=== PATIENT | female | born 1980 | race Two or more races ===

== ENCOUNTER 2019-03-02 09:23 | Observation (INO) | payer SELFPAY ==
[2019-03-02 10:10] LABS: BILIRUBIN,URINE NEGATIVE (NEG); CLARITY,URINE CLEAR; COLOR,URINE YELLOW; NITRITE,URINE NEGATIVE (NEG); PH,URINE 6.5; PROTEIN,URINE NEGATIVE (NEG-TRACE); UROBILINOGEN,URINE 0.2 mg/dL (0.2 mg/dL)
[2019-03-02 10:12] LABS: BARBITURATES NEG (NEG); BENZODIAZEPINES NEG (NEG); CANNABINOIDS NEG (NEG); COCAINE NEG (NEG); METHADONE NEG (NEG); OPIATES NEG (NEG); PHENCYCLIDINE NEG (NEG)
[2019-03-02 10:17] LABS: AMPHETAMINE/METHAMPHETAMINE NEG (NEG)
[2019-03-02 10:51] LABS: SQUAMOUS EPITHELIAL CELL,UR MOD /LPF
[2019-03-02 10:52] LABS: BACTERIA,URINE FEW /HPF (0-FEW); RBC,URINE OCC /HPF (0-2)
--- NOTE | 2019-03-02 12:41 | RAD ---
PREG MORE THAN OR EQ TO 14 WKS History: Vaginal bleeding, no care Comparison: None. Findings: Multiple transabdominal sonographic images of the uterus are submitted. Cervix is long and closed, 6.3 cm in length. There is a single intrauterine fetus, cephalic presentation. There is low lying placenta. There is anterior placenta. Amniotic fluid volume is subjectively within normal limits, estimated BERTHA of 12.7 cm. Cerebellum measured 2.93 cm. Cisterna magna measures 0.51 cm. There is four-chamber view of the heart. There is demonstrable cardiac activity 143 bpm. bladder is visualized. There is a three-vessel cord and midline cord insertion. 2 kidneys were visualized. There is no obvious abnormality of the demonstrated spine. stomach was visualized. There are apparently 2 upper and lower extremities. Maternal ovaries could not be visualized, no demonstrable abnormality of the maternal adnexal regions on either side. Biometry data are as follows: Biparietal diameter 6.35 cm corresponds 25 weeks 5 days Head circumference 24.1 cm corresponds with 26 weeks 2 days Abdominal circumference 22.26 cm corresponds with 26 weeks 5 days Femur length 4.97 cm corresponds with 26 weeks 5 days Estimated weight 960 g +/- 142 g. Adjusted ultrasound age is 26 weeks 3 days with estimated delivery date by ultrasound of 06/05/2019. LMP age is not provided. Impression: 1. There is a single viable intrauterine fetus in cephalic presentation, adjusted ultrasound age 26 weeks 3 days with estimated delivery by ultrasound of 06/05/2019. There is low lying placenta. Cervix is closed, amniotic fluid volume within normal limits. Electronically signed by: Nael Weston MD (03/02/2019 12:38 PM) [facility]
== END 2019-03-02 14:00 | disposition home or self-care (01) ==
LOC: 3 SO LND 09:23
PROVIDERS: ADMIT Obstetrics & Gynecology; ATTEND Obstetrics & Gynecology
DX: O26.892 Other specified pregnancy related conditions, second trimester (principal); M54.9 Dorsalgia, unspecified; O46.92 Antepartum hemorrhage, unspecified, second trimester; Z3A.26 26 weeks gestation of pregnancy
CPT/HCPCS: 76805; 80307; 81001; 87086; G0378; G0379